=== PATIENT | female | born 1975 | race Caucasian/White ===

== ENCOUNTER 2017-06-01 08:24 | Emergency (ER) | payer OTHER | END 2017-06-01 08:54 | disposition home or self-care (01) | LOC: NAV ERS 08:24 | DX: J02.9 Acute pharyngitis, unspecified (principal); I10 Essential (primary) hypertension; G62.9 Polyneuropathy, unspecified; F31.9 Bipolar disorder, unspecified; F90.9 Attention-deficit hyperactivity disorder, unspecified type; Z79.899 Other long term (current) drug therapy | CPT/HCPCS: 99282 ==

== ENCOUNTER 2019-01-09 08:11 | Outpatient (CLI) | payer OTHER | END 2019-01-09 08:12 | disposition home or self-care (01) | LOC: NAV LAB 08:11 | PROVIDERS: ATTEND Psychiatry & Neurology Psychiatry | DX: F90.2 Attention-deficit hyperactivity disorder, combined type (principal); F41.1 Generalized anxiety disorder; F31.63 Bipolar disorder, current episode mixed, severe, without psychotic features | CPT/HCPCS: 84479 ==

== ENCOUNTER 2019-05-05 06:38 | Emergency (ER) | payer OTHER ==
[2019-05-05] MEDS ORDERED: Ibuprofen 200 MG TAB ONE (07:23)
[2019-05-05] MEDS ORDERED: Acetaminophen 325 MG TAB ONE (07:23)
== END 2019-05-05 07:49 | disposition home or self-care (01) ==
LOC: NAV ERS 06:38
DX: S39.012A Strain of muscle, fascia and tendon of lower back, initial encounter (principal); S29.012A Strain of muscle and tendon of back wall of thorax, initial encounter; J30.9 Allergic rhinitis, unspecified; E03.9 Hypothyroidism, unspecified; F90.9 Attention-deficit hyperactivity disorder, unspecified type; F31.9 Bipolar disorder, unspecified; F41.9 Anxiety disorder, unspecified; Z79.899 Other long term (current) drug therapy; X50.9XXA Other and unspecified overexertion or strenuous movements or postures, initial encounter
CPT/HCPCS: 99283

== ENCOUNTER 2020-02-16 15:26 | Emergency (ER) | payer OTHER ==
[~2020-02-16 15:26] MED LIST: Iopamidol 370 76% 100 ML VIAL ONE
[2020-02-16] MEDS ORDERED: Sodium Chloride 0.9% 1,000 ML ONE (15:45)
[2020-02-16] MEDS ORDERED: Aspirin Chewable 81 MG TAB ONE (15:45)
[2020-02-16 15:51] LABS: #Basophils 0.1 thou/uL (0.0-0.2); #Eosinphils 0.2 thou/uL (0.0-0.7); #Lymphocytes 3.2 thou/uL (1.20-3.40); #Monocytes 0.6 thou/uL (0.11-0.59); #Neutrophils 4.8 thou/uL (1.40-6.50); %Basophils 0.9 % (0.0-1.0); %Eosinophils 1.9 % (0.0-10.0); %Lymphocytes 35.9 % (21.0-51.0); %Monocytes 6.9 % (0.0-10.0); %Neutrophils 54.5 % (42.0-75.0); Hemoglobin 12.1 g/dL (12.0-16.0); Mean Corpuscular HGB CONC 31.2 g/dL (32.0-36.0); Mean Corpuscular Hemoglobin 28.1 pg (27.0-31.0); Mean Corpuscular Volume 90.1 fL (78.0-98.0); Mean Platelet Volume 7.5 fL (7.4-10.4); Platelet Count 251 thou/uL (130-400); RBC Distribution Width 11.3 % (11.5-14.5); White Blood Cell (WBC) Count 8.8 thou/uL (4.8-10.8)
[2020-02-16 16:07] LABS: ALT (SGPT) 20 U/L (8-55); AST (SGOT) 13 U/L (5-34); Albumin 3.6 g/dL (3.5-5.0); Alkaline Phosphatase 109 U/L (40-110); Anion Gap 14 mmol/L (10-20); BUN (Urea Nitrogen) 9 mg/dL (7.0-18.7); Bilirubin, Total 0.3 mg/dL (0.2-1.2); CK (CPK) 44 U/L (29-168); Calc. Creatinine Clearance 0 mL/min (70-130); Calcium 8.7 mg/dL (7.8-10.44); Carbon Dioxide 21 mmol/L (22-29); Chloride 105 mmol/L (98-107); Estimated GFR-MDRD 66; Glucose 121 mg/dL (70-105); Potassium 3.4 mmol/L (3.5-5.1); Protein, Total 6.6 g/dL (6.0-8.3); Sodium 137 mmol/L (136-145)
[2020-02-16 16:13] LABS: Bilirubin Negative (Negative); Blood, Urine Negative (Negative); Glucose, Urine (Dipstick) Negative (Negative); Ketone, Urine Negative (Negative); Leukocyte Negative (Negative); Nitrite Negative (Negative); Protein, Urine (Dipstick) Negative (Neg-Trace); Urobilinogen 0.2 mg/dL (Less than 2); pH, Urine 6.5 (5.0-9.0)
[2020-02-16 16:15] LABS: Clarity SL HAZY (Clear)
[2020-02-16 16:16] LABS: BHCG - Serum Negative (NEGATIVE); Pregs Control Bar Appear? YES (CONTROL BAR)
--- NOTE | 2020-02-16 16:31 | RAD ---
XR Chest 1 View Portable HISTORY: Chest pain COMPARISON: 11/06/2018 FINDINGS: The heart size is normal. The lungs are well expanded without focal areas of consolidation, pneumothorax or pleural effusions. IMPRESSION: No radiographic evidence of acute cardiopulmonary process.
--- NOTE | 2020-02-16 18:08 | CT ---
Exam: CT angiogram of the chest HISTORY: Chest pain. Elevated d-dimer. COMPARISON: None TECHNIQUE: CT angiogram of the chest is performed in the axial plane. Three-dimensional reformatted i mages are submitted for interpretation FINDINGS: Mediastinum: No mass, lymphadenopathy or hematoma. HEART: Normal size. No significant pericardial fluid. Aorta: No aneurysm or dissection Upper solid abdominal viscera: No abnormality enhancement. Trachea and central bronchi: Patent Pleural spaces: Small bilateral effusions Lung parenchyma: No masses or consolidation. Pneumothorax: None Osseous structures: No lytic or blastic lesions Pulmonary arteries: Adequate contrast opacification pulmonary arterial system to the level of the agustina tral pulmonary arteries.. No filling defect to suggest pulmonary embolism. Limited evaluation of the lobar and segmental/subsegmental arteries due to timing of contrast bolus. Findings: Indeterminate mixed attenuation hypodensity in the right thyroid lobe. IMPRESSION: 1. No evidence of a central pulmonary artery embolism. 2. Heterogeneous right thyroid lobe. Nonemergent thyroid ultrasound.
[2020-02-16 18:56] LABS: Troponin I Less than 0.010 ng/mL (< 0.028)
== END 2020-02-16 19:08 | disposition home or self-care (01) ==
LOC: NAV ERS 15:26
DX: R07.89 Other chest pain (principal); E03.9 Hypothyroidism, unspecified; Z79.899 Other long term (current) drug therapy
CPT/HCPCS: 71045; 71275; 81003; 82550; 84443; 84484; 84703; 85379; 93005; 96360; J7050; Q9967

== ENCOUNTER 2021-09-08 05:44 | Emergency (ER) | payer OTHER | END 2021-09-08 06:30 | disposition home or self-care (01) | LOC: NAV ERS 05:44 | DX: S93.402A Sprain of unspecified ligament of left ankle, initial encounter (principal); S93.602A Unspecified sprain of left foot, initial encounter; I10 Essential (primary) hypertension; E78.5 Hyperlipidemia, unspecified; E03.9 Hypothyroidism, unspecified; E11.40 Type 2 diabetes mellitus with diabetic neuropathy, unspecified; E66.9 Obesity, unspecified; X50.1XXA Overexertion from prolonged static or awkward postures, initial encounter; Z68.45 Body mass index [BMI] 70 or greater, adult; Z79.84 Long term (current) use of oral hypoglycemic drugs; Z79.899 Other long term (current) drug therapy ==

== ENCOUNTER 2022-04-09 14:39 | Emergency (ER) | payer OTHER ==
[2022-04-09] MEDS ORDERED: Ibuprofen 800 MG TAB ONE (15:14)
== END 2022-04-09 15:27 | disposition home or self-care (01) ==
LOC: NAV ERS 14:39
DX: H10.12 Acute atopic conjunctivitis, left eye (principal); I10 Essential (primary) hypertension; E11.9 Type 2 diabetes mellitus without complications; E78.5 Hyperlipidemia, unspecified; E66.9 Obesity, unspecified; Z79.899 Other long term (current) drug therapy
CPT/HCPCS: 99282

== ENCOUNTER 2022-08-04 07:10 | Emergency (ER) | payer OTHER | END 2022-08-04 08:20 | disposition home or self-care (01) | LOC: NAV ERS 07:10 | DX: H66.92 Otitis media, unspecified, left ear (principal); I10 Essential (primary) hypertension; E11.40 Type 2 diabetes mellitus with diabetic neuropathy, unspecified; E78.00 Pure hypercholesterolemia, unspecified; E66.9 Obesity, unspecified; E03.9 Hypothyroidism, unspecified; Z79.899 Other long term (current) drug therapy | CPT/HCPCS: 99282 ==